=== PATIENT | female | born 1990 | race Caucasian/White ===

== ENCOUNTER 2016-05-11 19:13 | Emergency (ER) ==
[2016-05-11 19:32] LABS: MANUAL DIFF NEEDED? NO
[2016-05-11 19:35] LABS: URINE MICRO REVIEW NEEDED? NO; URINE SOURCE CLEAN CATCH
[2016-05-11 19:37] LABS: BASO% 0.4 % (0.0-0.8); EOS# 0.15 X1000 (0.0-0.7); EOS% 1.2 % (0.0-10.0); HEMATOCRIT 42.1 % (37.0-47.0); HEMOGLOBIN 14.7 g/dL (12.0-16.0); IMM GRAN# 0.02 X1000 (0.0-0.04); IMM GRAN% 0.2 % (0.0-0.5); LYMPH# 2.82 X1000 (1.2-3.4); LYMPH% 22.2 % (20.5-51.1); MCH 30.8 PG (27-31); MCHC 34.9 g/dL (33-37); MCV 88.1 FL (81-99); MONO# 0.73 X1000 (0.11-0.59); MONO% 5.7 % (1.7-9.3); MPV 10.1 FL (7.4-10.4); NEUT% 70.3 % (42.2-75.2); PLT 393 X1000 (130-400); RBC 4.78 XMIL (4.2-5.4)
[2016-05-11 19:41] LABS: BILIRUBIN URINE NEGATIVE (NEGATIVE); BLOOD URINE MODERATE (NEGATIVE); COLOR YELLOW; GLUCOSE URINE NEGATIVE (NEGATIVE); LEUKOCYTES URINE LARGE (NEGATIVE); NITRITE URINE NEGATIVE (NEGATIVE); PH URINE 6.5; PROTEIN URINE 30 mg/dL (NEGATIVE); SP GRAVITY URINE 1.027; TURBIDITY URINE HAZY (CLEAR); UROBILINOGEN URINE 2 mg/dL (NORMAL)
[2016-05-11 19:42] LABS: UR EPITHELIAL CELLS >10 /HPF (<10); URINE BACTERIA 2+ /HPF; URINE CULTURE NEEDED? YES; URINE RBC <10 /HPF (<10); URINE WBC TNTC /HPF (<10)
--- NOTE | 2016-05-11 20:04 | PROVIDER DOCUMENTATION ---
HPI-Abdominal Pain/GI Problem - General Chief Complaint: Psych Stated Complaint: PSYCH Time Seen by Provider: 05/11/16 19:56 Source: patient Allergies/Adverse Reactions: Patient Allergies Allergy/AdvReac Type Severity Reaction Status Date / Time No Known Allergies Allergy Verified 01/14/16 20:53 Home Medications: Hydrocodone/Acetaminophen [[place] 5-325 Tablet] 1 each PO Q6H PRN PRN 12/21/15 Sulfamethoxazole/Trimethoprim [Bactrim Ds Tablet] 1 each PO BID 01/14/16 Ziprasidone [Geodon] 80 mg PO BID 01/14/16 Review of Systems - Adult - REVIEW OF SYSTEMS - ADULT Constitutional: reports: no symptoms reported. denies: chills, fever, fatique Eyes: reports: no symptoms reported. denies: discharge, blurred vision, double vision, redness Ears, Nose, Mouth & Throat: reports: no symptoms reported. denies: ear discharge, ear pain, nose pain, loose teeth, throat pain, throat swelling Cardiovascular: reports: no symptoms reported. denies: chest pain, palpitations , syncope Respiratory: reports: no symptoms reported. denies: chronic cough, cough, shortness of breath, wheezing Gastrointestinal: reports: see HPI, nausea, poor appetite, vomiting. denies: abdominal pain, hematemesis, constipation, diarrhea, difficulty swallowing, frequent heartburn, rectal bleeding Genitourinary: reports: no symptoms reported. denies: dysuria, hematuria, urgency Musculoskeletal: reports: no symptoms reported. denies: bone pain, joint pain, joint swelling, neck pain Integumentary: reports: no symptoms reported. denies: hives, itching, rash, skin thickening Neurological: reports: no symptoms reported. denies: ataxia, numbness, paresthesia, tremors Psychiatric: reports: no symptoms reported Endocrine: reports: no symptoms reported Hematologic/Lymphatic: reports: no symptoms reported Allergic/Immunologic: reports: no symptoms reported All Other Systems: Reviewed and Negative Past History - Adult - PAST MEDICAL HISTORY-ADULT Major Childhood Illnesses: reports: denies history Cardiovascular: reports: denies history Respiratory: reports: denies history Gastrointestinal: reports: GERD Obstetrical/Gynecological: reports: other (cervical cysts) Genitourinary: reports: kidney stones, retention Musculoskeletal: reports: chronic pain (back pain) Neurological: reports: denies history Psychiatric: reports: anxiety, depression, suicide attempt Endocrine/Immune: reports: denies history Other Conditions: reports: denies history - PRIOR SURGERIES/PROCEDURES Surgical/Procedure History: reports: appendectomy, BTL, other (kidney stones, cysts from ovaries, D & C, tubes in ears) - PRIOR HOSPITALIZATIONS Prior Hospitalizations: reports: for other non-related - IMMUNIZATION STATUS Childhood Immunizations: See Nurse Assessment Flu Vaccine: See Nurse Assessment - FAMILY HISTORY Family History: reviewed, not pertinent Departure - Departure DIAGNOSIS: UTI (urinary tract infection) Qualifiers: Urinary tract infection type: acute cystitis Hematuria presence: with hematuria Qualified Code(s): N30.01 - Acute cystitis with hematuria Referrals: Seng Zavala MD [Primary Care Provider] - Attestation - Physician/ Mid-level Attestation Patient care was provided by Mid-level provider (HEAD START DIRECTOR/PA):: Yes Mid-level provider:: Gege King Mid-level documentation review:: The Mid-level provider documentation, treatment plan and medical decision making was reviewed by the physician who agrees with all treatment and medical decision making by the MLP.
[2016-05-11 20:14] LABS: AGAP 17; ALBUMIN 4.3 g/dL (3.5-5.0); ALKALINE PHOSPHATASE 109 U/L (32-104); BUN 9 mg/dL (8-22); CALCIUM 9.6 mg/dL (8.8-10.2); CHLORIDE 102 mmol/L (98-107); COSMO 278; GOT 23 U/L (10-30); GPT 34 U/L (10-36); POTASSIUM 3.9 mmol/L (3.5-5.1); SODIUM 140 mmol/L (136-145); TCO2 21 mmol/L (25-35); TOTAL BILIRUBIN 0.18 mg/dL (0.20-1.00); TOTAL PROTEIN 7.7 g/dL (6.3-8.3)
[2016-05-11 20:32] LABS: UR AMPHETAMINES QUAL NONE DETECTED (NONE DETECT); UR BARBITUATES QUAL NONE DETECTED (NONE DETECT); UR BENZODIAZEPIN QUAL NONE DETECTED (NONE DETECT); UR CANNABINOIDS QUAL PRESUMPTIVE POSITIVE (NONE DETECT); UR COCAINE QUAL NONE DETECTED (NONE DETECT); UR METHADONE QUAL NONE DETECTED (NONE DETECT); UR OPIATES QUAL NONE DETECTED (NONE DETECT); UR OXYCODONE QUAL PRESUMPTIVE POSITIVE (NONE DETECT); UR PCP QUAL NONE DETECTED (NONE DETECT)
[2016-05-11 21:10] LABS: FREE T4 1.11 ng/dL (0.93-1.70)
--- NOTE | 2016-05-11 21:17 | PROVIDER DOCUMENTATION ---
Addendum entered and electronically signed by Gege King CRNP 03:14: Progress - CHANGE OF SHIFT REPORT (ED Provider) Report Given and Care Transferred to:: dr. Ramirez Time of Transfer: 03:14 Items Pending: Other (placement) Original Note: HPI-Psychological Disorder - General Source: patient - History of Present Illness-Psych Onset/Duration: reports: 2 days ago Timing: reports: still present Severity: reports: mild Psychiatric Complaints: reports: suicidal ideation Previous psych related hospitalizations?: Yes Patient arrived by:: private car Similar Symptoms Previously?: Yes Recently seen or treated by another doctor?: No - Suicidal Ideation Suicide Risk Assessment: prior attempt, organized plan <Yany Wesley - Last Filed: 05/11/16 21:13> - General Source: patient <Gege King - Last Filed: 05/11/16 22:45> - General Chief Complaint: Psych Stated Complaint: PSYCH Time Seen by Provider: 05/11/16 19:56 Allergies/Adverse Reactions: Patient Allergies Allergy/AdvReac Type Severity Reaction Status Date / Time No Known Allergies Allergy Verified 01/14/16 20:53 Home Medications: Hydrocodone/Acetaminophen [[place] 5-325 Tablet] 1 each PO Q6H PRN PRN 12/21/15 Sulfamethoxazole/Trimethoprim [Bactrim Ds Tablet] 1 each PO BID 01/14/16 Ziprasidone [Geodon] 80 mg PO BID 01/14/16 - History of Present Illness-Psych Nature of Presenting Problem: 25 year old F presents to the ED with a cc of suicidal ideation x2 days. Pt has a hx of previous attempts by cutting and overdosing. PT states she does have a plan of suicide with overdosing. PT lives at home with her and 2 children. Pt states "things would just be better without me." PT has been off her medications due to financial issues. (Yany Wesley) Review of Systems - Adult - REVIEW OF SYSTEMS - ADULT Constitutional: denies: chills, fever Eyes: reports: no symptoms reported Ears, Nose, Mouth & Throat: reports: no symptoms reported Cardiovascular: denies: chest pain, palpitations Respiratory: denies: cough, shortness of breath Gastrointestinal: denies: abdominal pain, nausea, vomiting Genitourinary: reports: no symptoms reported Musculoskeletal: denies: bone pain, muscle aches Integumentary: denies: skin sores/ulcer, skin thickening Neurological: reports: no symptoms reported Psychiatric: reports: suicidal thoughts. denies: depression Endocrine: reports: no symptoms reported Hematologic/Lymphatic: reports: no symptoms reported Allergic/Immunologic: reports: no symptoms reported All Other Systems: Reviewed and Negative <Yany Wesley - Last Filed: 05/11/16 21:13> Past History - Adult - PAST MEDICAL HISTORY-ADULT Review of Records: reports: Nursing Assessment Review, Medications Reviewed Major Childhood Illnesses: reports: denies history Gastrointestinal: reports: GERD Obstetrical/Gynecological: reports: other (cervical cysts) Genitourinary: reports: kidney stones, retention Musculoskeletal: reports: chronic pain (back pain) Psychiatric: reports: anxiety, depression, suicide attempt - PRIOR SURGERIES/PROCEDURES Surgical/Procedure History: reports: appendectomy, BTL, other (kidney stones, cysts from ovaries, D & C, tubes in ears) - PRIOR HOSPITALIZATIONS Prior Hospitalizations: reports: for other non-related - IMMUNIZATION STATUS Childhood Immunizations: See Nurse Assessment Flu Vaccine: See Nurse Assessment - FAMILY HISTORY Family History: reviewed, not pertinent - SOCIAL HISTORY Smoking: cigarettes, greater than 1 pack/day Provider spent 3-5 mins advising pt. on dangers of tobacco.: Discussed manners to quit use, and f/u contacts for add'l counseling. Substance Use: none/never Alcohol Use Frequency: never <Yany Wesley - Last Filed: 05/11/16 21:13> Physical Exam-Psych Focus - Physical Exam-Psych Initial Vital Signs Reviewed: Yes Appearance: appropriate appearance, appropriate insight, neat, no memory impairment, denies illness Neurological: alert, normal mood/affect, calm, pediatric genetic counselor II-XII nml as tested, oriented x 3, responds to pain Behavior/Eye Contact/Speech: cooperative, good eye contact, normal speech Thoughts/Hallucinations: normal thought pattern, no apparent hallucination Respiratory: chest non-tender, lungs clear, normal breath sounds Cardiovascular: normal peripheral pulses, regular rate, rhythm, no edema Integumentary: normal color, normal turgor, warm/dry <Yany Wesley - Last Filed: 05/11/16 21:13> Departure <Yany Wesley - Last Filed: 05/11/16 21:13> - Departure Time of Disposition Order: 22:43 Certified Medical Emergency: Emergent <Gege King - Last Filed: 05/11/16 22:45> - Departure DIAGNOSIS: Suicidal ideation UTI (urinary tract infection) Qualifiers: Urinary tract infection type: acute cystitis Hematuria presence: with hematuria Qualified Code(s): N30.01 - Acute cystitis with hematuria Disposition: [facility] Condition: Stable Prescriptions: Cephalexin [Keflex] 500 mg PO BID #14 capsule Referrals: Seng Zavala MD [Primary Care Provider] - Attestation - Scribe Verification/Attestation Scribe:: Yany Wesley Acting as Scribe for:: Gege King Scribe documention review:: This chart was documented by a scribe and accurately reflects the service the provider performed and the decisions made by the provider. <Yany Wesley - Last Filed: 05/11/16 21:13> - Physician/ Mid-level Attestation Patient care was provided by Mid-level provider (CORE STACKER/PA):: Yes Mid-level provider:: Gege King Mid-level documentation review:: The Mid-level provider documentation, treatment plan and medical decision making was reviewed by the physician who agrees with all treatment and medical decision making by the [facility]. <Gege King - Last Filed: 05/11/16 22:45> Physician Attestation - Physician Attestation I, the provider, attest to the following statement:: Gege King Physician documentation Attestation:: This documentation recorded by the scribe accurately reflects the service I personally performed and the decisions made by me. <Yany Wesley - Last Filed: 05/11/16 21:13>
[2016-05-11] MEDS ORDERED: ROCEPHIN IM ONE (22:21)
[2016-05-11] MEDS ORDERED: XYLOCAINE-MPF 1% INJ ONE (22:21)
[2016-05-11] MEDS ORDERED: ZOFRAN ODT PO ONE (23:16)
[2016-05-12] MEDS ORDERED: MOTRIN PO ONE (01:36)
[2016-05-12] MEDS ORDERED: HYDROXYZINE PO ONE (03:14)
[2016-05-12] MEDS ORDERED: HYDROXYZINE ONE (03:30)
[2016-05-12] MEDS ORDERED: ATIVAN PO ONE (04:14)
--- NOTE | 2016-05-12 05:47 | EKG Report ---
Test Performed on : 05/12/2016 03:12:34 AM Test Reason : PSYCH Blood Pressure : / mmHG Vent. Rate : 079 BPM Atrial Rate : 079 BPM P-R Int : 132 ms QRS Dur : 082 ms QT Int : 356 ms P-R-T Axes : 001 003 000 degrees QTc Int : 408 ms Normal sinus rhythm. Cannot rule out Anterior infarct , age undetermined Abnormal ECG When compared with ECG of 31-OCT-2013 20:51, No significant change was found Unconfirmed Result
--- NOTE | 2016-05-12 07:35 | Diag Imaging Result Document ---
PROCEDURE NAME: RENAL STONE SEARCH - 05/11/2016 CT ABDOMEN AND PELVIS, 05/11/2016: COMPARISON: 01/14/2016. FINDINGS: Stable significant fatty liver. Stable tiny nonobstructing bilateral renal stones. There is no change from prior. IMPRESSION: No change from prior.
[2016-05-12 07:36] VITALS: BP 109/59
== END 2016-05-12 08:40 ==
LOC: ED 19:13
DX: R45.851 Suicidal ideations (principal); N30.01 Acute cystitis with hematuria; Z91.5 Personal history of self-harm; M54.9 Dorsalgia, unspecified; G89.29 Other chronic pain; F41.9 Anxiety disorder, unspecified; F32.9 Major depressive disorder, single episode, unspecified; F17.210 Nicotine dependence, cigarettes, uncomplicated; Z87.442 Personal history of urinary calculi; Z87.42 Personal history of other diseases of the female genital tract; Z71.6 Tobacco abuse counseling; Z79.899 Other long term (current) drug therapy
CPT/HCPCS: 36415; 74176; 80053; 81001; 81025; 82607; 84439; 84443; 85025; 87088; 93005; 96372; G0480; J0696; S0181